=== PATIENT | female | born 1965 | race Caucasian/White ===

== ENCOUNTER 2018-11-10 12:57 | Emergency (ER) | payer OTHER ==
[~2018-11-10] VITALS: Ht 172.7 cm; Wt 108.9 kg
[~2018-11-10 12:57] MED LIST: ACETAMINOPHEN-1 EAC1 PO; BACTRIM DS TAB1 EACH PO; BACTROBAN CREAM30 G1 TOP; IBUPROFEN 800800 M1 PO; ULTRAM 50MG TAB50 MG PO
[2018-11-10] MEDS ORDERED: NORCO 5-325 TA1 EACH PO (13:25)
[2018-11-10] MEDS ORDERED: KEFLEX500 M1 PO (13:25)
[2018-11-10 13:35] VITALS: BP 160/90
== END 2018-11-10 13:41 | disposition home or self-care (01) ==
LOC: M.ERS 12:57
DX: S00.83XA Contusion of other part of head, initial encounter (principal); K08.89 Other specified disorders of teeth and supporting structures; E66.9 Obesity, unspecified; Z68.36 Body mass index [BMI] 36.0-36.9, adult; X58.XXXA Exposure to other specified factors, initial encounter; Y93.89 Activity, other specified; Y92.89 Other specified places as the place of occurrence of the external cause; Y99.8 Other external cause status

== ENCOUNTER 2021-02-08 01:43 | Emergency (ER) | payer OTHER ==
[~2021-02-08] VITALS: Ht 172.7 cm; Wt 122.5 kg
[~2021-02-08 01:43] MED LIST changes: +KEFLEX500 M1 PO; +NORCO 5-325 TA1 EACH PO
[2021-02-08] MEDS ORDERED: HYDROCODON-ACE1 EAC8 PO (02:41)
[2021-02-08] MEDS ORDERED: PENICILLIN VK250 MG PO (02:41)
[2021-02-08 02:52] VITALS: BP 149/95
== END 2021-02-08 02:52 | disposition home or self-care (01) ==
LOC: M.ERS 01:43
DX: R06.00 Dyspnea, unspecified (principal); R00.1 Bradycardia, unspecified; E66.9 Obesity, unspecified; Z68.41 Body mass index [BMI] 40.0-44.9, adult